=== PATIENT | female | born 1980 | race Caucasian/White ===

== ENCOUNTER 2017-10-29 05:48 | Day surgery (SDC) | payer OTHER | END 2017-10-29 16:50 | disposition home or self-care (01) | LOC: CIR.AMB 05:48 | DX: N13.5 Crossing vessel and stricture of ureter without hydronephrosis (principal) ==

== ENCOUNTER 2018-06-17 05:27 | Day surgery (SDC) | payer OTHER ==
[~2018-06-17 05:27] MED LIST: ADVIL LIQUI-GE200 MG PO
== END 2018-06-17 09:25 | disposition home or self-care (01) ==
LOC: CIR.AMB 05:27
DX: N13.1 Hydronephrosis with ureteral stricture, not elsewhere classified (principal)

== ENCOUNTER → 2018-08-11 | Outpatient (CLI) | payer OTHER | END | disposition home or self-care (01) | LOC: NUCLEAR 13:00 | DX: C54.8 Malignant neoplasm of overlapping sites of corpus uteri (principal); N13.1 Hydronephrosis with ureteral stricture, not elsewhere classified | CPT/HCPCS: 78708; A9539; J1940 ==

== ENCOUNTER 2018-08-29 11:12 | Day surgery (SDC) | payer OTHER ==
[~2018-08-29 11:12] MED LIST changes: +CALTRATE 600 +1 EACH PO
== END 2018-08-29 19:40 | disposition home or self-care (01) ==
LOC: CIR.AMB 11:12
DX: N13.5 Crossing vessel and stricture of ureter without hydronephrosis (principal)

== ENCOUNTER 2019-04-21 05:56 | Day surgery (SDC) | payer OTHER | END 2019-04-21 11:33 | disposition home or self-care (01) | LOC: CIR.AMB 05:56 | DX: N13.1 Hydronephrosis with ureteral stricture, not elsewhere classified (principal) ==

== ENCOUNTER 2019-06-16 07:43 | Outpatient (CLI) | payer OTHER | END 2019-06-16 07:51 | disposition home or self-care (01) | LOC: SONOGRAMA 07:43 → MAMO-SONO 08:15 | DX: N30.00 Acute cystitis without hematuria (principal) ==

== ENCOUNTER 2019-06-19 05:39 | Day surgery (SDC) | payer OTHER | END 2019-06-19 16:15 | disposition home or self-care (01) | LOC: CIR.AMB 05:39 | DX: N13.5 Crossing vessel and stricture of ureter without hydronephrosis (principal) ==

== ENCOUNTER 2019-08-11 09:21 | Outpatient (CLI) | payer OTHER | END 2019-08-11 09:35 | disposition home or self-care (01) | LOC: TOM 09:21 → RX STUDY 10:15 | DX: R31.1 Benign essential microscopic hematuria (principal) ==

== ENCOUNTER → 2019-11-29 | Outpatient (CLI) | payer OTHER | END | disposition home or self-care (01) | LOC: MAMO-SONO 08:15 | DX: R31.1 Benign essential microscopic hematuria (principal) ==

== ENCOUNTER 2020-01-12 13:15 | Outpatient (CLI) | payer OTHER | END 2020-01-12 14:24 | disposition home or self-care (01) | LOC: NUCLEAR 13:15 | DX: C54.8 Malignant neoplasm of overlapping sites of corpus uteri (principal); N13.1 Hydronephrosis with ureteral stricture, not elsewhere classified | CPT/HCPCS: 78708; A9539; J1940 ==

== ENCOUNTER 2020-07-03 08:18 | Outpatient (CLI) | payer OTHER | END 2020-07-03 08:31 | disposition home or self-care (01) | LOC: SONOGRAMA 08:18 | PROVIDERS: ATTEND Urology | DX: C54.8 Malignant neoplasm of overlapping sites of corpus uteri (principal); N30.00 Acute cystitis without hematuria; N13.1 Hydronephrosis with ureteral stricture, not elsewhere classified ==

== ENCOUNTER 2020-10-17 08:41 | Outpatient (CLI) | payer OTHER | END 2020-10-17 08:59 | disposition home or self-care (01) | LOC: NUCLEAR 08:41 | PROVIDERS: ATTEND Obstetrics & Gynecology | DX: C53.9 Malignant neoplasm of cervix uteri, unspecified (principal) | CPT/HCPCS: 78803; A9503 ==

== ENCOUNTER 2021-07-24 07:14 | Outpatient (CLI) | payer OTHER | END 2021-07-24 07:17 | disposition home or self-care (01) | LOC: NUCLEAR 07:14 | DX: C53.1 Malignant neoplasm of exocervix (principal) | CPT/HCPCS: 78816; A9552 ==

== ENCOUNTER 2022-02-06 09:10 | Outpatient (CLI) | payer OTHER | END 2022-02-06 09:12 | disposition home or self-care (01) | LOC: NUCLEAR 09:10 | PROVIDERS: ATTEND Urology | DX: C54.8 Malignant neoplasm of overlapping sites of corpus uteri (principal); N13.1 Hydronephrosis with ureteral stricture, not elsewhere classified | CPT/HCPCS: 78709; A9539; J1940 ==

== ENCOUNTER 2023-01-20 08:36 | Outpatient (CLI) | payer OTHER | END 2023-01-20 08:55 | disposition home or self-care (01) | LOC: NUCLEAR 08:36 | DX: C53.1 Malignant neoplasm of exocervix (principal) | CPT/HCPCS: 78815; A9552 ==